=== PATIENT | male | born 1975 | race African-American/Black ===

== ENCOUNTER 2023-04-10 16:02 | Emergency (ER) | payer OTHER ==
[~2023-04-10] VITALS: Ht 182.9 cm; Wt 87.0 kg
[2023-04-10] MEDS ORDERED: ACETAMINOPHEN 500 MG TAB PO ONE (16:30)
[2023-04-10] MEDS ORDERED: KETOROLAC TROMETH 60MG/2ML VIAL IM ONE (16:30)
[2023-04-10 16:50] LABS: Urine Bacteria NONE SEEN /hpf (None Seen); Urine Blood Negative /uL (Negative); Urine Mucus FEW (None Seen); Urine Specific Gravity 1.025 (1.001-1.035); Urine WBC <1 /hpf (0 - 3)
[2023-04-10 17:05] LABS: Basophils # (auto) 0.1 10 ^3/uL (0-0.2); Basophils % (auto) 1.1 % (0.0-2.0); Eosinophils # (auto) 0.4 10 ^3/uL (0-0.8); Eosinophils % (auto) 5.6 % (0.0-7.0); Hematocrit 43.9 % (41.0-53.0); Lymphocytes # (auto) 2.8 10 ^3/uL (0.4-5.4); Lymphocytes % (auto) 41.5 % (10.0-50.0); Mean Corpuscular Hemoglobin 31.2 pg (28.0-32.0); Mean Corpuscular Hgb Conc. 34.1 g/dL (32.0-36.0); Mean Corpuscular Volume 91.4 fL (80.0-100.0); Monocytes # (auto) 0.6 10 ^3/uL (0-1.3); Monocytes % (auto) 9.1 % (0.0-12.0); Neutrophils # (auto) 2.9 10 ^3/uL (1.6-8.6); Neutrophils % (auto) 42.7 % (37.0-80.0); Nucleated Red Blood Cells % 0.2 %; Red Cell Distribution Width 13.8 % (11.8-14.3); White Blood Cell 6.7 10^3/uL (4.4-10.8)
[2023-04-10 17:10] VITALS: BP 121/51; PULSE 74; RESP 20; TEMP 98.2; O2SAT 99
[2023-04-10 17:29] LABS: Albumin 3.9 g/dL (3.4-5.0); Calcium 8.7 mg/dL (8.5-10.1)
[2023-04-10 17:33] LABS: BUN/Creatinine Ratio 14.2 (10.0-20.0); Bilirubin, Total 0.5 mg/dL (0.2-1.0); Total Protein 7.2 g/dL (6.4-8.2)
[2023-04-10] MEDS ORDERED: ACET500T58 PO (18:12)
[2023-04-10] MEDS ORDERED: IBUP-1455 PO (18:12)
[2023-04-10] MEDS ORDERED: TAMS-35 PO (18:26)
== END 2023-04-10 18:29 | disposition home or self-care (01) ==
LOC: ER 16:02
DX: N20.0 Calculus of kidney (principal)
CPT/HCPCS: 36415; 74176; 80053; 81001; 85025; 96372; 99285; J1885